=== PATIENT | male | born 1970 | race Caucasian/White ===

== ENCOUNTER 2016-11-18 19:58 | Emergency (ER) | payer MEDICARE, OTHER ==
[~2016-11-18] VITALS: Ht 170.2 cm; Wt 70.3 kg
[~2016-11-18 19:58] MED LIST: CLON2TAB PO; HYDR-548 PO; IBUP-1955 PO; OLAN10TA3 PO
[2016-11-18 20:23] LABS: BASOPHILS # (AUTO) 0.1 /CMM (0.0-0.2); BASOPHILS % (AUTO) 0.7 % (0.0-2.0); DIFF TOTAL % 100 %; EOSINOPHILS # (AUTO) 0.1 /CMM (0.0-0.7); EOSINOPHILS % (AUTO) 0.8 % (0.0-6.0); HEMATOCRIT 49 % (39-51); HEMOGLOBIN 16.8 g/dL (13.5-17.5); LYMPHOCYTES # (AUTO) 3.1 /CMM (0.8-4.8); LYMPHOCYTES % (AUTO) 28.2 % (20.0-44.0); MEAN CORPUSCULAR HEMOGLOBIN 30 PG (26.0-33.0); MEAN CORPUSCULAR HGB CONC 34 g/dl (31.0-36.0); MEAN CORPUSCULAR VOLUME 88 fL (80-96); MONOCYTES # (AUTO) 0.7 /CMM (0.1-1.30); MONOCYTES % (AUTO) 6.2 % (2.0-12.0); NEUTROPHILS % (AUTO) 64.1 % (43.0-81.0); PLATELET COUNT (AUTO) 282 /CMM (150-450); RED BLOOD CELL COUNT(AUTO) 5.58 MIL/uL (4.5-6.0)
[2016-11-18] MEDS ORDERED: ONDANSETRON HCL/PF 4 MG/2 ML VIAL IVP ONE (20:30)
[2016-11-18] MEDS ORDERED: Thiamine 100 MG in IV D5W 50 ML IV SCH (20:30)
[2016-11-18] MEDS ORDERED: IV NS 0.9% 1,000 ML BAG IV ONE (20:30)
[2016-11-18 20:31] LABS: CALCIUM, SERUM 8.7 mg/dL (8.5-10.1); POTASSIUM 4.1 mmol/L (3.5-5.1)
[2016-11-18 20:36] LABS: ALBUMIN 4.5 g/dL (3.4-5.0); BILIRUBIN,DIRECT 0.1 mg/dL (0.0-0.2); BILIRUBIN,TOTAL 0.3 mg/dL (0.2-1.0); INDIRECT BILIRUBIN 0.2 mg/dL (0.0-1.1); TOTAL PROTEIN, SERUM 8.9 g/dL (6.4-8.2)
[2016-11-18] MEDS ORDERED: IV NS 0.9% 1,000 ML ONE (20:53)
[2016-11-18] MEDS ORDERED: IV SET PRIMARY 1 EA INFUS.SET MC ONE ×2 (20:53→21:13)
[2016-11-18] MEDS ORDERED: ONDANSETRON HCL/PF 4 MG/2 ML VIAL ONE (20:53)
[2016-11-18 21:47] LABS: ADD UA MICROSCOPIC NO; KETONES,URINE Negative (NEGATIVE); LEUKOCYTE ESTERASE ,URINE Negative (NEGATIVE); PH,URINE 5.5 (5.0-8.0)
[2016-11-18 21:54] LABS: CANNABINOID, URINE NEGATIVE (NEGATIVE); PHENCYCLIDINE SCREEN,URINE NEGATIVE (NEGATIVE)
[2016-11-18 23:48] VITALS: BP 136/74
== END 2016-11-18 23:49 | disposition home or self-care (01) ==
LOC: ER 20:00
DX: R41.82 Altered mental status, unspecified (principal); F10.129 Alcohol abuse with intoxication, unspecified; F32.9 Major depressive disorder, single episode, unspecified; F41.9 Anxiety disorder, unspecified
CPT/HCPCS: 36415; 80048; 80076; 80305; 80329; 81001; 85025; 96365; 96375; 99284; A4606; G0480 ×2; J2405; J3411; J7030; J7060; 81000-TC; G6039-TC; Z7610

== ENCOUNTER 2016-11-23 06:43 | Emergency (ER) | payer MEDICARE, OTHER ==
[~2016-11-23] VITALS: Ht 170.2 cm; Wt 72.1 kg
[2016-11-23 06:55] VITALS: BP 136/89
--- NOTE | 2016-11-23 06:56 | NUR ---
PT AMBULATORY TO ER BED 8, C/O "RAN OUT OF MEDICATION X 2 DAYS AND FEELING ANXIOUS" PT STATES " I WANT TO HURT MYSELF" WITH PLAN TO "JUMP IN TRAFFIC." PT AOX3 RR EVEN AND UNLABORED. NO SOB NOTED. NAD NOTED. NO NVD. PT GOWNED WAITING FOR MD MO.
[2016-11-23] MEDS ORDERED: clonazePAM 1 MG TABLET PO ONE (07:00)
[2016-11-23] MEDS ORDERED: clonazePAM 1 MG TABLET ONE (07:02)
--- NOTE | 2016-11-23 07:23 | NUR ---
REPORT GIVEN TO SHARI FOFANA FOR [facility].
[2016-11-23 07:42] LABS: BASOPHILS % (AUTO) 0.4 % (0.0-2.0); EOSINOPHILS # (AUTO) 0.1 /CMM (0.0-0.7); EOSINOPHILS % (AUTO) 1.5 % (0.0-6.0); HEMATOCRIT 41 % (39-51); HEMOGLOBIN 13.7 g/dL (13.5-17.5); LYMPHOCYTES # (AUTO) 2.4 /CMM (0.8-4.8); LYMPHOCYTES % (AUTO) 35.9 % (20.0-44.0); MEAN CORPUSCULAR HEMOGLOBIN 30 PG (26.0-33.0); MEAN CORPUSCULAR HGB CONC 34 g/dl (31.0-36.0); MEAN CORPUSCULAR VOLUME 89 fL (80-96); MONOCYTES # (AUTO) 0.6 /CMM (0.1-1.30); MONOCYTES % (AUTO) 9.6 % (2.0-12.0); NEUTROPHILS # (AUTO) 3.5 /CMM (1.8-8.9); NEUTROPHILS % (AUTO) 52.6 % (43.0-81.0); PLATELET COUNT (AUTO) 216 /CMM (150-450); RDW COEFFICIENT OF VARIATION 13.8 (11.5-15.0); RED BLOOD CELL COUNT(AUTO) 4.61 MIL/uL (4.5-6.0); WHITE BLOOD COUNT (AUTO) 6.6 K/uL (4.3-11.0)
[2016-11-23 07:45] LABS: APPEARANCE,URINE CLEAR (CLEAR); BILIRUBIN,URINE NEGATIVE (NEGATIVE); BLOOD, URINE NEGATIVE Ery/uL (NEGATIVE); COLOR,URINE YELLOW (YELLOW); KETONES,URINE NEGATIVE (NEGATIVE); LEUKOCYTE ESTERASE ,URINE NEGATIVE (NEGATIVE); NITRITE, URINE NEGATIVE (NEGATIVE); PROTEIN,URINE TRACE mg/dl (NEGATIVE); UGLUCOSE NEGATIVE (NEGATIVE); UROBILINOGEN,URINE 0.2 EU/dL (0.2)
[2016-11-23 07:52] LABS: ADD URINE CULTURE NO; BACTERIA,URINE None seen /HPF (None Seen); RBC,URINE NONE SEEN /HPF (0-2); SQUAMOUS EPITHELIAL CELL,UR Few /HPF (None Seen); WBC,URINE 0-2 /HPF (0-3)
[2016-11-23 07:52] LABS: CALCIUM, SERUM 7.9 mg/dL (8.5-10.1); CREATININE 0.8 mg/dL (0.6-1.3)
[2016-11-23 07:56] LABS: PHENCYCLIDINE SCREEN,URINE NEGATIVE (NEGATIVE)
[2016-11-23 07:57] LABS: CANNABINOID, URINE POSITIVE (NEGATIVE)
[2016-11-23 07:57] LABS: ALBUMIN 3.4 g/dL (3.4-5.0); BILIRUBIN,DIRECT 0.1 mg/dL (0.0-0.2); BILIRUBIN,TOTAL 0.2 mg/dL (0.2-1.0); TOTAL PROTEIN, SERUM 6.9 g/dL (6.4-8.2)
[2016-11-23 07:58] LABS: SALICYLATE 2.6 mg/dL (2.8-20.0)
--- NOTE | 2016-11-23 08:18 | NUR ---
CALLED SHARI HOLGUIN FOR PSYCH EVAL ETA=1HR
[2016-11-23] MEDS ORDERED: ACETAMINOPHEN 325 MG TABLET ONE (09:33)
[2016-11-23] MEDS ORDERED: ACETAMINOPHEN 325 MG TABLET PO ONE (10:00)
--- NOTE | 2016-11-23 11:35 | NUR ---
Patient discharged to psych facility in stable condition. Written and verbal after care instructions given. Patient verbalizes understanding of instruction. report given to emt, original hold with emt. leaving via ambulance. ambulatory with steady gait.
== END 2016-11-23 11:35 ==
LOC: ER 06:45
DX: R45.851 Suicidal ideations (principal); G89.4 Chronic pain syndrome; F32.9 Major depressive disorder, single episode, unspecified; F17.210 Nicotine dependence, cigarettes, uncomplicated; F10.20 Alcohol dependence, uncomplicated
CPT/HCPCS: 36415; 80048; 80076; 80305; 80329; 81001; 85025; 99285; A4606; G0480 ×2; 81000-TC; G6039-TC; Z7610

== ENCOUNTER 2016-12-22 22:15 | Emergency (ER) | payer MEDICARE, OTHER ==
[~2016-12-22] VITALS: Ht 170.2 cm; Wt 72.1 kg
--- NOTE | 2016-12-22 22:20 | NUR ---
PT AMBULATORY TO ER BED 10. C/O DEPRESSION W/ SI. PLAN ON RUNNING THROUGH TRAFFIC. STATES BEEN OFF OF HIS PSYCH MEDS. GOWNED AND PLACED ON MONITOR. STABLE VITALS. PLACED ON SUICIDE PRECAUTION. NAD NOTED. AWAITING MD MO.
--- NOTE | 2016-12-22 22:35 | NUR ---
OPTICIAN APPRENTICE DISPENSING AT BEDSIDE FOR BLOOD DRAW.
[2016-12-22 22:50] LABS: BASOPHILS % (AUTO) 0.5 % (0.0-2.0); EOSINOPHILS # (AUTO) 0.2 /CMM (0.0-0.7); EOSINOPHILS % (AUTO) 1.6 % (0.0-6.0); HEMATOCRIT 45 % (39-51); HEMOGLOBIN 14.6 g/dL (13.5-17.5); LYMPHOCYTES # (AUTO) 3.8 /CMM (0.8-4.8); LYMPHOCYTES % (AUTO) 35.9 % (20.0-44.0); MEAN CORPUSCULAR HEMOGLOBIN 30 PG (26.0-33.0); MEAN CORPUSCULAR HGB CONC 33 g/dl (31.0-36.0); MEAN CORPUSCULAR VOLUME 90 fL (80-96); MONOCYTES # (AUTO) 0.7 /CMM (0.1-1.30); MONOCYTES % (AUTO) 7.1 % (2.0-12.0); NEUTROPHILS # (AUTO) 5.8 /CMM (1.8-8.9); NEUTROPHILS % (AUTO) 54.9 % (43.0-81.0); PLATELET COUNT (AUTO) 313 /CMM (150-450); RDW COEFFICIENT OF VARIATION 14.2 (11.5-15.0); RED BLOOD CELL COUNT(AUTO) 4.93 MIL/uL (4.5-6.0); WHITE BLOOD COUNT (AUTO) 10.5 K/uL (4.3-11.0)
[2016-12-22 22:52] LABS: APPEARANCE,URINE CLEAR (CLEAR); BILIRUBIN,URINE NEGATIVE (NEGATIVE); BLOOD, URINE NEGATIVE Ery/uL (NEGATIVE); COLOR,URINE YELLOW (YELLOW); KETONES,URINE NEGATIVE (NEGATIVE); LEUKOCYTE ESTERASE ,URINE NEGATIVE (NEGATIVE); NITRITE, URINE NEGATIVE (NEGATIVE); PROTEIN,URINE NEGATIVE (NEGATIVE); UGLUCOSE NEGATIVE (NEGATIVE); UROBILINOGEN,URINE 0.2 EU/dL (0.2)
[2016-12-22 22:58] LABS: ADD URINE CULTURE NO; BACTERIA,URINE None seen /HPF (None Seen); CALCIUM, SERUM 8.4 mg/dL (8.5-10.1); CARBON DIOXIDE 31 mmol/L (21-32); CHLORIDE 103 mmol/L (98-107); CREATININE 1.1 mg/dL (0.6-1.3); GFR 71 mL/min (>60); GLUCOSE 98 mg/dL (74-106); POTASSIUM 3.8 mmol/L (3.5-5.1); RBC,URINE 0-2 /HPF (0-2); SODIUM SERUM 139 mmol/L (136-145); SQUAMOUS EPITHELIAL CELL,UR Few /HPF (None Seen); UREA NITROGEN, BLOOD 23 mg/dL (7-18); WBC,URINE 0-2 /HPF (0-3)
[2016-12-22 23:04] LABS: ALANINE AMINOTRANSFERASE 134 U/L (12-78); ALCOHOL, BLOOD < 3 mg/dL (0-0); ALKALINE PHOSPHATASE 55 U/L (46-116); ASPARTATE AMINOTRANSFERASE 102 U/L (15-37); BILIRUBIN,DIRECT 0.1 mg/dL (0.0-0.2); BILIRUBIN,TOTAL 0.4 mg/dL (0.2-1.0); TOTAL PROTEIN, SERUM 7.9 g/dL (6.4-8.2)
[2016-12-22 23:06] LABS: ACETAMINOPHEN 0 ug/ml (10-30); PHENCYCLIDINE SCREEN,URINE NEGATIVE (NEGATIVE); SALICYLATE 2.1 mg/dL (2.8-20.0)
[2016-12-22 23:07] LABS: CANNABINOID, URINE POSITIVE (NEGATIVE)
--- NOTE | 2016-12-22 23:37 | NUR ---
Left msg for Art, DIRECTOR OF TECHNOLOGY for psych eval.
--- NOTE | 2016-12-22 23:45 | NUR ---
REPORT TO [employer] FOR [facility].
--- NOTE | 2016-12-23 00:28 | NUR ---
2ND CALL TO ART, COLLECTION TEAM LEAD FOR PSYCH EVAL.
[2016-12-23] MEDS ORDERED: LORAZEPAM 1 MG TABLET PO ONE (07:00)
[2016-12-23] MEDS ORDERED: IBUPROFEN 400 MG TABLET PO ONE (07:00)
[2016-12-23] MEDS ORDERED: IBUPROFEN 400 MG TABLET ONE (07:04)
[2016-12-23] MEDS ORDERED: LORAZEPAM 1 MG TABLET ONE (07:04)
--- NOTE | 2016-12-23 07:30 | NUR ---
RECEIVED REPORT FOR [facility]. PT AWAKE ORIENTED ABLE TO MAKE NEEDS KNOWN. CALLED FOR BREAKFAST TRAY .VSS
--- NOTE | 2016-12-23 09:59 | NUR ---
PT ASLEEP AROUSABLE TO CALL OF NAME. GOES BACK TO SLEEP
--- NOTE | 2016-12-23 10:56 | NUR ---
PT ASLEEP BUT EASILY AROUSABLE. NAD NOTED. ALL NEEDS ATTENDED TO.
--- NOTE | 2016-12-23 12:25 | NUR ---
PT WOKE UP AND ASKED FOR LUNCH TRAY. NUTRITION PAGED FOR TRAY.
--- NOTE | 2016-12-23 12:58 | NUR ---
CALL PLACED TO ESTEFANÍA HAMPTON FOR PSYCH EVAL
--- NOTE | 2016-12-23 13:44 | NUR ---
art, cath lab radiological technologist at bedside
[2016-12-23 13:57] VITALS: BP 123/72
--- NOTE | 2016-12-23 15:47 | NUR ---
RESTING COMFORTABLY, ALL NEEDS ATTENDED TO. CALLED BARI AT [facility] INTAKE; THE RN IS STILL REVIEWING CHART, THEY WILL CALL BACK WITH A DECISION
--- NOTE | 2016-12-23 17:10 | NUR ---
ASSUMED CARE OF PT. PT MOVED TO BED #18. PT APPEARS TO BE RESTING COMFORTABLY.
--- NOTE | 2016-12-23 18:00 | NUR ---
PT REC'D FOOD TRAY
--- NOTE | 2016-12-23 19:34 | NUR ---
[facility], [address] [place], [place] [address] CALL REPORT TO [phone]
--- NOTE | 2016-12-23 19:43 | NUR ---
[facility] IS TRANPORTING PT TO [facility] AT [facility]. ETA 1 HR.
--- NOTE | 2016-12-23 19:44 | NUR ---
ACCEPTING MD AT [facility] AT [facility] IS DR. TOLEDO
--- NOTE | 2016-12-23 20:33 | NUR ---
CALLING REPORT TO SHARI HAMPTON AT [facility] AT [facility]
--- NOTE | 2016-12-23 20:49 | NUR ---
CALLED [facility]. ETA NOW 20 MORE MINUTES.
--- NOTE | 2016-12-23 21:26 | NUR ---
[facility] ARRIVED AND PT WAS TRANSPORTED TO [facility].
== END 2016-12-23 21:28 ==
LOC: ER 22:17
DX: R45.851 Suicidal ideations (principal); F19.10 Other psychoactive substance abuse, uncomplicated; F41.9 Anxiety disorder, unspecified; F32.9 Major depressive disorder, single episode, unspecified; F17.200 Nicotine dependence, unspecified, uncomplicated; G89.4 Chronic pain syndrome
CPT/HCPCS: 36415; 80048; 80076; 80305; 80329; 81001; 85025; 99285; A4606; G0480 ×2; 81000-TC; G6039-TC; Z7610